=== PATIENT | male | born 1955 | race Caucasian/White ===

== ENCOUNTER 2017-07-23 07:32 | Day surgery (SDC) | payer MEDICARE ==
[~2017-07-23] VITALS: Ht 182.9 cm; Wt 107.0 kg
--- NOTE | ~2017-07-23 | OP ---
PATIENT NAME: CORINA WHYTE MEDICAL RECORD: [id number] :57 LOCATION:D.OPS ADMISSION DATE: SURGEON: SILVA MUÑOZ DO DATE OF OPERATION: 07/23/2017 PROCEDURE: Colonoscopy with polypectomy. INDICATIONS FOR PROCEDURE: Diverticular disease of the colon as well as abnormal weight loss. SCOPE: Olympus video pediatric colonoscope. MEDICATIONS: Propofol 500 mg IV per anesthesia. ESTIMATED BLOOD LOSS: Minimal. COMPLICATIONS: None. FINDINGS: Informed consent was given. The patient was made comfortable with the above medication. After reaching an adequate level of sedation by slow IV push, the patient was placed on his left side. A digital rectal examination was performed and was normal. The endoscope was advanced under direct visualization through the rectum to the ascending colon. This was an incomplete procedure for multiple regions. The prep quality was inadequate with very little visualization in a few segments of the colon. There was still too much solid stool to remove endoscopically. An attempt was made to still make it to the cecum to rule out any large masses. The patient has a known ventral abdominal hernia, which made passage of the endoscope extremely difficult especially in light of the inadequate prep. Withdrawal was started and the polyp that was initially seen in the rectosigmoid area was removed. It was a benign appearing sessile polyp which measured approximately 8 mm in diameter. It was removed using a hot snare in 1 piece and completely retrieved. The endoscope was then withdrawn from the patient. The patient tolerated the procedure well and there were no complications. IMPRESSION: 1. A single rectosigmoid polyp visualized, which was removed using a hot snare. 2. Inadequate prep with an incomplete colonoscopy with the approximate location reach being the ascending colon. PLAN AND RECOMMENDATIONS: 1. Discharge home when recovery parameters are met. 2. Follow up biopsy specimen results. 3. We will discuss options with the patient regarding repeating colonoscopy versus a barium enema. If the patient wishes to repeat the colonoscopy, an attempt will be made to provide a better prep for this procedure. TRANSINT:[id number] Voice Confirmation ID: [id number] DOCUMENT ID: [id number] OPERATIVE REPORT [id number] CORINA WHYTE SILVA MUÑOZ DO at 1119 CC: [id number] DICTATION DATE: 07/23/17 1039 COMPLIANCE AIDE: 07/23/17 1235 [facility] [place] 07/23/17 [facility] [id number] [id number]
[2017-07-23] MEDS ORDERED: METHADONE5 MG PO (08:53)
[2017-07-23] MEDS ORDERED: ENTRESTO 24 MG1 EACH PO (08:54)
[2017-07-23] MEDS ORDERED: ALDACTONE25 MG PO (08:54)
[2017-07-23] MEDS ORDERED: FUROSEMIDE40 MG PO (08:55)
[2017-07-23] MEDS ORDERED: K-DUR20 MEQ PO (08:55)
[2017-07-23] MEDS ORDERED: LISINOPRIL2.5 MG PO (08:56)
[2017-07-23] MEDS ORDERED: LYRICA100 MG PO (08:56)
[2017-07-23] MEDS ORDERED: PACERONE200 MG PO (08:56)
[2017-07-23] MEDS ORDERED: BUPROPION HCL100 MG PO (08:57)
[2017-07-23] MEDS ORDERED: ELAVIL25 MG PO (08:57)
[2017-07-23] MEDS ORDERED: AKWA TEARS15 ML EACH EYE (08:58)
[2017-07-23] MEDS ORDERED: VENTOLIN HFA18 GM INH (08:59)
[2017-07-23] MEDS ORDERED: BAYER CHEWABLE81 MG PO (09:00)
[2017-07-23] MEDS ORDERED: NITROSTAT0.4 MG SL (09:00)
[2017-07-23] MEDS ORDERED: COREG6.25 MG PO (09:00)
[2017-07-23] MEDS ORDERED: OMEPRAZOLE20 M1 PO (09:00)
[2017-07-23] MEDS ORDERED: LIPITOR80 MG PO (09:01)
[2017-07-23 09:12] VITALS: Ht 182.9 cm; Wt 107.0 kg
[2017-07-23 10:24] LABS: HEMATOCRIT 34.3 % (42.0-54.0); HEMOGLOBIN 11.4 g/dL (13.5-17.5); MCHC 33.2 g/dL (31.0-37.0); MCV 81.3 fL (80.0-100.0); MEAN PLATELET VOLUME 11.2 fL (7.4-10.4); RBC 4.22 10x6/uL (4.20-6.10); RDW 14.1 % (11.5-14.5); WBC 7.5 10x3/uL (4.8-10.8)
[2017-07-23 10:45] LABS: ANION GAP 14.1 mmol/L (8-16); CALCIUM 8.2 mg/dL (8.5-10.1); CREATININE - SERUM 1.1 mg/dL (0.6-1.3); POTASSIUM - SERUM 3.1 mmol/L (3.5-5.1)
== END 2017-07-23 11:40 | disposition home or self-care (01) ==
LOC: D.OPS 07:32
PROVIDERS: Anesthesiology
DX: R63.4 Abnormal weight loss (principal); R13.10 Dysphagia, unspecified; R12 Heartburn; D12.7 Benign neoplasm of rectosigmoid junction; I25.10 Atherosclerotic heart disease of native coronary artery without angina pectoris; I10 Essential (primary) hypertension; E11.9 Type 2 diabetes mellitus without complications; K21.9 Gastro-esophageal reflux disease without esophagitis; G47.30 Sleep apnea, unspecified; Z01.812 Encounter for preprocedural laboratory examination